=== PATIENT | male | born 1970 | race Caucasian/White ===

== ENCOUNTER 2024-09-10 11:11 | Emergency (ER) | payer BC ==
[~2024-09-10] VITALS: Ht 180.3 cm; Wt 106.6 kg
[2024-09-10] MEDS ORDERED: Ondansetron Hydrochloride 4 MG/2 ML VIAL IV ONE (11:30)
[2024-09-10] MEDS ORDERED: MORPHINE Sulfate 2 MG/ML SYR IV ONE (11:30)
[2024-09-10 12:08] LABS: HEMATOCRIT 48.7 % (42.0-52.0); MEAN CELL VOLUME 90.9 fl (80.0-94.0); MEAN CORPUSCULAR HGB 30.6 pg (27.0-31.0); MEAN CORPUSCULAR HGB CONC 33.7 g/dl (33.0-37.0); MEAN PLATELET VOLUME 10.5 fl (9.6-12.3); PLATELET COUNT AUTOMATED 180 10*3/uL (130-400); RED BLOOD COUNT 5.36 10*6/uL (4.50-5.90); RED CELL DISTRI WIDTH 12.4 % (0-14.5); WHITE BLOOD COUNT 9.3 10*3/uL (4.8-10.8)
[2024-09-10 12:12] LABS: MANUAL DIFF REFLEX YES
[2024-09-10 12:26] LABS: TOTAL CELLS COUNTED 100 #CELLS
[2024-09-10 12:27] LABS: PLATELET SUFFICIENCY NORMAL (NORMAL); POLYCHROMASIA SLIGHT; TARGET CELLS FEW
[2024-09-10 12:31] LABS: ALKALINE PHOSPHATASE 52 U/L (46-116); BUN 15 mg/dl (9-23); CHLORIDE 100 mmol/L (98-107); LIPASE 74 U/L (12-53); POTASSIUM 3.9 mmol/L (3.4-5.1); SGPT/ALT 208 U/L (5-49); TOTAL PROTEIN 7.9 gm/dL (6.0-8.0)
[2024-09-10 13:10] LABS: BILIRUBIN Negative (Negative); BLOOD Negative (Negative); CLARITY Clear (Clear); COLOR Orange (Yellow); GLUCOSE Negative (Negative); KETONE Negative (Negative); LEUKO ESTERASE Negative (Negative); NITRITE Negative (Negative); PH 5.5 (4.5-8.0); SPECIFIC GRAVITY 1.015 (1.001-1.030); UROBILINOGEN 0.2 E.U./dl (0.0-1.0)
[2024-09-10 13:22] LABS: EPITHELIAL CELLS 0-2
== END 2024-09-10 14:21 | disposition home or self-care (01) ==
LOC: ED 11:11
PROVIDERS: Physician Assistant Medical
DX: K82.8 Other specified diseases of gallbladder (principal); I10 Essential (primary) hypertension; E78.5 Hyperlipidemia, unspecified; R79.89 Other specified abnormal findings of blood chemistry